=== PATIENT | male | born 1965 | race Caucasian/White ===

== ENCOUNTER 2017-04-15 08:22 | Day surgery (SDC) | payer MEDICARE ==
[~2017-04-15 08:22] MED LIST: ACETAMINOPHEN 500 MG TABLET PO PRN; HYDROmorphone HCL 2 MG/ML VIAL IV PRN; MAG HYDROX/ALUMINUM HYD/SIMETH 30 ML UDC PO PRN; MAGNESIUM HYDROXIDE 30 ML UDC PO PRN; ONDANSETRON HCL/PF 2 MG/ML VIAL IV PRN; PROMETHAZINE HCL 25 MG in DEXTROSE 5 % IN WATER 50 ML IV PRN; ZOLPIDEM TARTRATE 5 MG TABLET PO PRN; diphenhydrAMINE HCL 50 MG/ML VIAL IV PRN
[2017-04-15] MEDS: RINGERS SOLUTION,LACTATED 1,000 ML IV PRN (09:15)
[2017-04-15] MEDS: BUPIVACAINE HCL/EPINEPHRINE 10 ML VIAL IJ ONE (09:50)
[2017-04-15] MEDS: ceFAZolin SODIUM 1 GM VIAL IV PRN (10:00)
[2017-04-15] MEDS: ROPIVACAINE HCL/PF 40 MG in NORMAL SALINE 16 ML IJ PRN (10:23)
--- NOTE | 2017-04-15 10:36 | OR ---
Operative Report - Dictated Report Narrative: Date: 04/15/2017 Physician: Justo Milligan M.D. Sleep Tech: Marcelino Fields PA-C Preoperative diagnosis: Right Knee medial meniscus tear Postoperative diagnosis: Right Knee medial meniscus tear, chondromalacia trochlea, patella, and medial femoral condyle Procedure: Right knee arthroscopy with partial medial meniscectomy, chondroplasty medial femoral condyle and trochlea Anesthesia: Gen. Plus local Complications: None Estimated blood loss: Minimal Tourniquet time: None Specimens: None Retained implants: None Drains: None Indications: Mr. Johnston Is a 52 year-old [place] who has been followed in my clinic with complaints of knee pain consistent with suspected medial joint pathology. Physical exam and diagnostic imaging were consistent with these complaints and concern for medial meniscus pathology. Conservative measures have failed including, but not limited to, passage of time, activity modification, medications, and injections. The risks, benefits, and alternatives were discussed in clinic. The risks being , bleeding, infection, blood clots, nerve, tendon, ligament, blood vessel injury, persistent pain, arthrosis, need for additional procedures, and persistent symptoms. Consent was obtained in the clinic. Procedure: After marking the correct extremity in the preoperative holding area, a timeout was performed in the operating room. IV antibiotics consisting of Ancef were administered prior to the procedure. A well-padded tourniquet was applied to the operative upper thigh. The leg was prepped and draped in a standard sterile fashion. 0.5% Marcaine with epinephrine was infused into the projected portal sites as well as the intra-articular space. A matt incision was made for inferior lateral portal. A blunt trocar and cannula was introduced into the knee. The suprapatellar pouch revealed she. The medial patella facet showed grade 3 changes with out any exposed bone. The lateral patella facet showed grade 3 changes. The trochlea showed grade 3 changes with loose chondral edges. The medial gutter revealed of pathology. The medial joint space was then entered utilizing a lateral post and valgus stress. A spinal needle was utilized for guidance into placement of an anterior medial portal. This was placed just superior to the medial meniscus ensuring that we could reach the posterior aspect of the medial joint space. A matt incision was made in the site, and the probe was introduced to the knee. The medial joint space was examined, and the medial femoral condyle showed grade 3 changes with loose chondral edges. The medial tibial plateau showed grade 2 change. The medial meniscus had a parrot-beak type tear at the junction of the posterior and middle third which easily mobilized and the joint. This extended to the capsule involved approximately 30% of the circumference. The notch was then examined, and the ACL was noted to be intact. The PCL was noted to be intact. The lateral joint space was then examined using a varus force in the figure 4 position. Lateral femoral condyle showed no significant arthrosis. Lateral tibial plateau showed no significant arthrosis. The lateral meniscus showed no tear. The lateral gutter showed no pathology. Having identified the surgical pathology, a series of biters and ritu were utilized in order to debride the middle third of the medial meniscus over approximately 75% the depth. The medial femoral condyle and trochlea were also debrided using the shaver down to stable chondral edges. Once it was felt that we adequately addressed the pathology, the knee was thoroughly irrigated. The fluid was evacuated ensuring that we have removed all meniscal, chondral, and any other loose bodies. A final evaluation of the joint showed no additional pathology. The fluid was then evacuated of the knee, and the trocar and camera were removed from the joint. The wounds were closed with interrupted nylon after placing 20 mL of 0.2 % ropivacaine into the joint. Dressings consisting of Xeroform, 4 x 4, ABD, soft roll, and an Tulio were applied. All sponge, needle, blade, and instrument counts were correct prior to closing the wounds. The patient was awoken and transferred to the postanesthesia care unit in stable condition.
[2017-04-15] MEDS: oxyCODONE HCL/ACETAMINOPHEN 1 TAB TABLET PO PRN (11:38)
[2017-04-15 12:06] VITALS: BP 127/85
[2017-04-15] MEDS ORDERED: SENNOSIDES/DOCUSATE SODIUM 1 TAB TABLET PO SCH (21:00)
== END 2017-04-15 08:23 | disposition home or self-care (01) ==
LOC: AMB 08:22
PROVIDERS: ATTEND Orthopaedic Surgery
PROC: 0SBC4ZZ Excision of Right Knee Joint, Percutaneous Endoscopic Approach (ICD-10-PCS; principal; 2017-04-15 09:40)
DX: M23.221 Derangement of posterior horn of medial meniscus due to old tear or injury, right knee (principal); M22.41 Chondromalacia patellae, right knee; E11.9 Type 2 diabetes mellitus without complications; I10 Essential (primary) hypertension; E78.5 Hyperlipidemia, unspecified; E03.9 Hypothyroidism, unspecified; F32.9 Major depressive disorder, single episode, unspecified; Z87.891 Personal history of nicotine dependence; Z68.41 Body mass index [BMI] 40.0-44.9, adult